=== PATIENT | female | born 1995 | race Two or more races ===

== ENCOUNTER 2020-03-01 03:55 | Inpatient (IN) | payer BC ==
[~2020-03-01] VITALS: Ht 167.6 cm; Wt 70.3 kg
[2020-03-01] MEDS ORDERED: PROZAC20 MG ORAL (04:05)
[2020-03-01 04:10] VITALS: BP 122/77
[2020-03-01] MEDS ORDERED: Activated Charcoal 50gm/240ml Btl ORAL ONE (04:15)
[2020-03-01] MEDS ORDERED: D5W IV ONE ×5 (04:15→09:45)
[2020-03-01] MEDS ORDERED: ACETADOTE IV ONE ×5 (04:15→09:45)
--- NOTE | 2020-03-01 04:17 | Emergency Room Report ---
History of Present Illness General Chief Complaint: Overdose Source: Patient (Alli Guzman MD) Present Illness HPI 25-year-old female with history of depression. She presents with chief complaint of overdose. She said she had a bad night and took a whole bottle of Tylenol from 711. She also took half a bottle of Advil. She does not know heavy tablets or in the bottles. This occurred about an hour prior to arrival. Patient also said that she was drinking heavily tonight. She says she was depressed and was suicidal but now does not want to hurt himself and is not suicidal anymore. No fever chills but no nausea no vomiting. Denies any other drug use. Family called 911. I tried calling multiple [employer] stores around this area but no one picked up. On the Internet, [employer] tylenol comes in 500 mg of 24 count tablets. 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 COVID-19 Screening: Negative COVID-19 COVID-19 Testing Source: clinic (Alli Guzman MD) Patient History Past Medical History: see triage record, old chart reviewed, depression Past Surgical History: other Family History: none Social History: ETOH Last Menstrual Period: january 2020 Now: No Immunizations: other Reviewed Nursing Documentation: PMH: Agreed; PSxH: Agreed (Alli Guzman MD) Nursing Documentation-PMH Past Medical History: No History, Except For (Alli Guzman MD) Review of Systems ENT: Denies: sore throat Cardiovascular: Denies: chest pain, palpitations Gastrointestinal/Abdominal: Denies: nausea, vomiting, diarrhea Musculoskeletal: Denies: back problems Skin: Denies: rash Neurological: Denies: [place], seizures All Other Systems: negative except mentioned in HPI (Alli Guzman MD) Physical Exam Vital Signs Date Time Temp Pulse Resp B/P (MAP) Pulse Ox O2 Delivery O2 Flow Rate FiO2 03/01/20 03:57 98.2 68 16 122/77 (92) 97 Room Air Vitals normal Sp02 EP Interpretation: reviewed, normal General Appearance: alert/responsive, no apparent distress, non-toxic Head: normocephalic, atraumatic Eyes: PERRL, EOMI ENT: oropharynx normal Neck: supple/symm/no masses Respiratory: effort normal, no rhonchi, no wheezing Cardiovascular: no murmur, gallop, rub Gastrointestinal: non-tender, no mass, non-distended, no rebound/guarding, normal bowel sounds Musculoskeletal: gait & station normal Neurologic: oriented x3, sensory intact, motor strength/tone normal Skin: no rash, normal palpation (Alli Guzman MD) Procedures Critical Care Time Critical Care Time This patient presents with Tylenol overdose. Unknown milligram but based on my best educated guess, she probably took 12 g. Is slightly above toxic dose based on her weight. Her initial Tylenol level is very high. We will repeat 1 in 4 hours. I initiated Mucomyst based on her story. Patient will need psychiatric evaluation. (Alli Guzman MD) Medical Decision Making Diagnostic Impression: Primary Impression: Tylenol overdose Qualified Codes: T39.1X2A - Poisoning by 4-aminophenol derivatives, intentional self-harm, initial encounter Additional Impressions: Alcohol intoxication Qualified Codes: F10.920 - Alcohol use, unspecified with intoxication, uncomplicated Suicidal overdose Qualified Codes: T50.902A - Poisoning by unspecified drugs, medicaments and biological substances, intentional self-harm, initial encounter ER Course This patient presents with Tylenol overdose. Initial level elevated. We will repeat 1 in 4 hours. I will sign this patient out to Dr. Coreas. (Alli Guzman MD) ER Course Please see above note. Awaiting repeat Tylenol level and also sobriety. 640 4 hour Tylenol level 130. Intermediate range. Will deliver 3rd dose of acetadote and admit to hospital with sitter. BAL also still high. Patient placed on medical hold. Discussed with patient need for continued treatment for Tylenol overdose. 1000 Patient examined by GI specialist in ED. (César Coreas MD) EKG Diagnostic Results Rate: normal, tachycardiac Rhythm: NSR ST Segments: no acute changes (Alli Guzman MD) Rhythm Strip Diag. Results EP Interpretation: yes Rate: 100 Rhythm: NSR, no PVC's, no ectopy (Alli Guzman MD) Last Vital Signs Date Time Temp Pulse Resp B/P (MAP) Pulse Ox O2 Delivery O2 Flow Rate FiO2 03/01/20 03:57 98.2 68 16 122/77 (92) 97 Room Air Status: improved (Alli Guzman MD) Last Vital Signs Date Time Temp Pulse Resp B/P (MAP) Pulse Ox O2 Delivery O2 Flow Rate FiO2 03/01/20 20:13 Room Air 03/01/20 19:55 99.0 99 20 111/74 (86) 99 Status: improved (César Coreas MD) Disposition: ADMITTED INPATIENT Condition: Serious Referrals: NOT CHOSEN IPA/,REFERRING (PCP) Alli Guzman MD Mar 01, 2020 04:17 César Coreas MD Mar 01, 2020 06:39
[2020-03-01 04:26] LABS: APPEARANCE,URINE CLEAR; BILIRUBIN, URINE NEGATIVE (NEGATIVE); COLOR,URINE PALE YELLOW; GLUCOSE, URINE (UA) NEGATIVE (NEGATIVE); KETONES,URINE NEGATIVE (NEGATIVE); LEUKOCYTE ESTERASE ,URINE NEGATIVE (NEGATIVE); NITRITE,URINE NEGATIVE (NEGATIVE); PH,URINE 5 (4.5-8.0); PROTEIN,URINE NEGATIVE (NEGATIVE); UROBILINOGEN,URINE NORMAL MG/DL (0.0-1.0)
[2020-03-01 04:28] LABS: BASOPHILS % (AUTO) 0.6 % (0.0-2.0); EOSINOPHILS % (AUTO) 0.2 % (0.0-3.0); HEMATOCRIT 40.9 % (37.0-47.0); HEMOGLOBIN 13.4 G/DL (12.0-16.0); LYMPHOCYTES % (AUTO) 36.6 % (20.0-45.0); MEAN CORPUSCULAR VOLUME 90 FL (80-99); MONOCYTES % (AUTO) 6.9 % (1.0-10.0); NEUTROPHILS % (AUTO) 55.7 % (45.0-75.0); PLATELET COUNT 343 K/UL (150-450); RED BLOOD COUNT 4.53 M/UL (4.20-5.40); RED CELL DISTRIBUTION WIDTH 14.2 % (11.6-14.8); WHITE BLOOD COUNT 12.7 K/UL (4.8-10.8)
--- NOTE | 2020-03-01 04:29 | NUR ---
ED Nurse Note: Called poison controll for recomendation for patient's injested substance. Due to the approximate time she injested acetaminophen they recomend a tylenol blood level drawn in 4 hours and if the level is above 150 then administer the acetaminophin binder. Also recomended to draw folate levels for possible additional compounds.
--- NOTE | 2020-03-01 04:34 | NUR ---
Nurse Note: Pt brought in by ambulance 68 c/o ingesting one full bottle of tylenol and half a bottle of advil with a unk amount of vodka at 0315. Pt steady gait, answers question appropriately, slurring words. Pupils fixed and dilated. Pt placed on lunchroom monitor, est IV and sent blood. Urine collected and sent to lab. Rapid covid swab collected and sent to lab. EKG given to MD Activated charcol adminstered and pt is vomiting. Pt denies SI on arrival but stated "I had a hard day so why not".
[2020-03-01 04:35] LABS: ANION GAP 12 mmol/L (5-15); BLOOD UREA NITROGEN 14 mg/dL (7-18); CALCIUM 8.6 MG/DL (8.5-10.1); CARBON DIOXIDE 22 MMOL/L (21-32); CHLORIDE 109 MMOL/L (98-107); CREATININE 0.8 MG/DL (0.55-1.30); POTASSIUM 3.7 MMOL/L (3.5-5.1); SODIUM 143 MMOL/L (136-145)
[2020-03-01 04:47] LABS: ALANINE AMINOTRANSFERASE 14 U/L (12-78); ALBUMIN 3.9 G/DL (3.4-5.0); ALBUMIN/GLOBULIN RATIO 0.9 (1.0-2.7); ALKALINE PHOSPHATASE 56 U/L (46-116); ASPARTATE AMINO TRANSFERASE 17 U/L (15-37); BILIRUBIN,TOTAL 0.2 MG/DL (0.2-1.0)
--- NOTE | 2020-03-01 05:00 | NUR ---
Nurse Note: Officer Owen #[id number] at pt side. Pt uncooperative, swearing at PD.
[2020-03-01 05:30] VITALS: BP 124/80
[2020-03-01] MEDS ORDERED: LORazepam Inj 2mg/ml 1ml IV ONE (05:30)
--- NOTE | 2020-03-01 05:56 | NUR ---
Nurse Note: Pt agitated after finishing activated charcol and vomiting. Pt pulled out IVs; 2 new IV placed - 20 gauge RT FA and 18 gauge LT AC. Pt yelling; on cardic monitor. All safety measures met.
[2020-03-01 06:55] VITALS: BP 134/87
--- NOTE | 2020-03-01 06:55 | NUR ---
Nurse Note: Endorsed care to PAM Looney for continuity of care.
--- NOTE | 2020-03-01 07:00 | NUR ---
ED Nurse Note: Received report from PAM Nixon. patient still currently yelling at staff. all safety measures in place, patient currently attached to monitor. Both IVs still intact, anecdote infusing. will continue to monitor
--- NOTE | 2020-03-01 07:57 | NUR ---
ED Nurse Note: spoke with patient's sisterkomal [phone]
--- NOTE | 2020-03-01 08:13 | NUR ---
ED Nurse Note: Collected blood alcohol level then sent.
--- NOTE | 2020-03-01 09:09 | NUR ---
ED Nurse Note: Spoke with Krissy from poison control, states that if tylenol level is greater than 126, give mucomyst.
--- NOTE | 2020-03-01 12:00 | NUR ---
ED Nurse Note: Per [facility] Control: >Repeat Acetaminophen Level with Liver Enzyme and INR - 1 hour before IV infusion(Acetadote) is completed. >If result is measurable acetaminophen level or if liver enzyme increases from baseline- then repeat 16 hour infusion. - Acetadote/Mucomyst 1000mg/kg x1L D5W x 16hours.
[2020-03-01 13:01] VITALS: BP 124/78
--- NOTE | 2020-03-01 13:01 | NUR ---
ED Nurse Note: pt. is sleeping with no s/s of acute resp distress
--- NOTE | 2020-03-01 14:30 | NUR ---
ED Nurse Note: Alexandria, water and juice provided to patient. Pt is AAO x4 at this time. Respirations are even and unlabored.
--- NOTE | 2020-03-01 15:47 | NUR ---
ED Nurse Note: Report given to NISHI OROZCO of Med Surg unit.
--- NOTE | 2020-03-01 15:47 | NUR ---
NURSE NOTES: Received report from PAM Cooper (ER)
[2020-03-01 16:00] VITALS: BP 105/76
--- NOTE | 2020-03-01 16:00 | NUR ---
NURSE NOTES: Patient arrived at unit via gurney with 2 ER nurses. Patient received awake, alert, and oriented x4. Currently on room air, no s/sx of SOB/ Distress, no c/o any pain or discomfort. IV site located on Left Hand 20, Right Hand 22 and RAC 20 all lines, inplace intact and patent. Currently running d5w with Mucomyst 7000mg protocol from [place] [facility]. Patient belongings checked and accounted for. Belonging list signed by patient. VS stable at 105/76, hr 95 02 95% temp 97.0 and RR 20. Skin assessment done none observed. Notified primary MD Young still awaiting admitting orders. Will continue to monitor patient 1:1 for any changes in patient's condition.
--- NOTE | 2020-03-01 17:02 | NUR ---
NURSE NOTES: Patient observed to be lying in bed, currently asleep. No s/sx of SOB/Distress.
[2020-03-01] MEDS ORDERED: LORazepam 1mg tab ORAL PRN (17:15)
--- NOTE | 2020-03-01 17:34 | NUR ---
NURSE NOTES: Contacted Ray Booker (father) notified of patient's admission to unit.
--- NOTE | 2020-03-01 18:02 | NUR ---
NURSE NOTES: Contacted Dr. Cage in regards to continuation of protocol from [place] [facility]. Still awaiting for any further orders.
--- NOTE | 2020-03-01 18:20 | NUR ---
NURSE NOTES: Spoke with Dr. Cage, received order to draw labs (CMP, Tylenol, and INR) AT 12:30 AM 03/02/2019. *PRIORITY* MUST BE IN BOTTLE BY 12:30 AM and brought straight to the lab. Call Dr. Cage JEFFERSON once results are available to determine continuation of current iv fluid. Orders noted and read back with confirmation from Dr. Cage. Orders carried out.
--- NOTE | 2020-03-01 19:18 | NUR ---
NURSE HAND-OFF: Important Events on Shift:ED ADMISSION, Detoxif from tylenol od Patient Status: stable Diet: npo except ice chips and meds Pending Orders: CMP, Tylenol, and INR @ 0030 Pending Results/Labs:n.a Pending MD notification:n/a Latest Vital Signs: Temperature 97.0 , Pulse 95 , B/P 105 /76 , Respiratory Rate 20 , O2 SAT 95 , Room Air, O2 Flow Rate . Vital Sign Comment: stable Latest Jessica Fall Score: 20 Fall Risk: Low Risk Safety Measures: Call light , Bed Alarm Zone 2, Side Rails Side Rails x1, Bed position Low and Locked. Fall Precautions: Yellow Socks Yellow Gown Door Sign Patient Fall Education Report given to PAM Marquez.
--- NOTE | 2020-03-01 19:28 | NUR ---
NURSE NOTES: patient alert and oriented, no distress talking on the phone with her sister.
[2020-03-01 19:55] VITALS: BP 111/74
--- NOTE | 2020-03-01 22:45 | History and Physical Report ---
DATE OF ADMISSION: 03/01/2020 HISTORY OF PRESENT ILLNESS: The patient is admitted because of Tylenol overdose. The patient came in with a chief complaint of overdose. She also took half of bottle of Advil. She does not know the exact amount. She states she was depressed and was suicidal. Family called 911. The patient might have taken 25 of Tylenol. The patient is admitted for Mucomyst administration, given the acetaminophen level being elevated. The patient denies headache. Denies shortness of breath. Denies nausea, vomiting, or diarrhea. Denies headache. PAST MEDICAL HISTORY: Depression. PAST SURGICAL HISTORY: None. FAMILY HISTORY: Noncontributory. SOCIAL HISTORY: No history of alcohol abuse. No history of drug abuse. No history of smoking. REVIEW OF SYSTEMS: HEENT: Denies headaches. RESPIRATORY: Denies shortness of breath. Denies cough. CARDIOVASCULAR: Denies chest pain. GI: Denies nausea, vomiting, or diarrhea. EXTREMITIES: Denies pain. CENTRAL NERVOUS SYSTEM: Denies change in speech pattern. ALLERGIES: No known allergies. MEDICATIONS: No medications. PHYSICAL EXAMINATION: VITAL SIGNS: Temperature 97.2, pulse 78, blood pressure 132/70. HEENT: PERRLA. NECK: Supple. No lymphadenopathy. CHEST: Clear to auscultation CARDIOVASCULAR: Regular rate and rhythm. No murmurs or extra sounds. GASTROINTESTINAL: Soft, nontender, and nondistended. No organomegaly. EXTREMITIES: No edema. Reflexes equal on both sides. Moves all four extremities. LABORATORY DATA: WBC is 12.7. Acetaminophen level is 225. Serum alcohol level is 277. ASSESSMENT AND PLAN: Tylenol overdose. I have consulted Dr. Alonzo, Dr. Velazquez, Dr. Cage for the need to examine this patient for the depression, and I have ordered and Dr. Alonzo just in case to make sure that there is no cardiac damage from the overdose. Kizzy Young M.D. DR: STARR JOB#: [id number] CC:
--- NOTE | 2020-03-01 23:26 | NUR ---
NURSE NOTES: got a phone call from marley of poison control and was told that tylenol level should be undetectable, inr<2 and cmp level within normal or trending down from previous levels in order to dc acetylcysteine iv.
[2020-03-02] VITALS: BP 106/59
[2020-03-02 00:42] LABS: ANION GAP 11 mmol/L (5-15); BLOOD UREA NITROGEN 9 mg/dL (7-18); CALCIUM 7.9 MG/DL (8.5-10.1); CARBON DIOXIDE 22 MMOL/L (21-32); CHLORIDE 104 MMOL/L (98-107); CREATININE 0.6 MG/DL (0.55-1.30); POTASSIUM 3.1 MMOL/L (3.5-5.1); SODIUM 137 MMOL/L (136-145)
[2020-03-02 00:43] LABS: INR 1.1 (0.9-1.1)
[2020-03-02 00:48] LABS: ALANINE AMINOTRANSFERASE < 6 U/L (12-78); ALBUMIN 2.9 G/DL (3.4-5.0); ALBUMIN/GLOBULIN RATIO 0.8 (1.0-2.7); ALKALINE PHOSPHATASE 38 U/L (46-116); ASPARTATE AMINO TRANSFERASE 14 U/L (15-37); BILIRUBIN,TOTAL 0.3 MG/DL (0.2-1.0)
--- NOTE | 2020-03-02 00:59 | Consultation ---
DATE OF CONSULTATION: 03/01/2020 GASTROENTEROLOGY CONSULTATION REPORT CHIEF COMPLAINT: I was asked to see this patient by Dr. Kizzy Young for evaluation of Tylenol overdose. HISTORY OF PRESENT ILLNESS: The patient is a 25-year-old woman, who came to the emergency room after taking half a bottle of Tylenol last night. At the time of my interview, the patient had just received the intravenous Ativan and was somewhat sedated and was difficult to get history from her. However, she did admit that at about 8 or 9 o'clock last night, she took half a bottle of Tylenol and attempted to commit suicide. She does have a longstanding history of depression and she is on Prozac. She came to emergency room sometime after midnight and blood level of Tylenol was drawn at 0400, which was 225 and again at 0800, which was 130. She was given activated charcoal orally and also N-acetylcysteine infusion protocol was initiated. Patient denies any abdominal pain or nausea or vomiting at this time. PAST MEDICAL HISTORY: As above history of depression. FAMILY HISTORY: Noncontributory. SOCIAL HISTORY: Patient drinks alcohol and smokes cigarettes. REVIEW OF SYSTEMS: Otherwise negative. PHYSICAL EXAMINATION: GENERAL: A well-developed woman, seen in the emergency room with the nurse present during the examination. HEENT: Normocephalic and atraumatic. NECK: Supple. CHEST: Clear to auscultation. CARDIOVASCULAR: Revealed a regular rate. ABDOMEN: Soft and nontender. EXTREMITIES: Revealed no edema. LABORATORY DATA: Reviewed. ASSESSMENT: This patient has ingested a significant amount of Tylenol last night and has been started on Mucomyst infusion therapy. This therapy will be continued for the remainder of the 16-hour infusion. At the end of the infusion, the liver tests and blood acetaminophen level will be checked and guidelines provided by Poison Control Center will be followed. If there is any detectable acetaminophen level or if there is rise in the liver tests, then a 16-hour infusion will be repeated. The patient should be seen by the Psychiatry service with respect to her attempted suicide. RECOMMENDATIONS: Per above discussion and per orders written in the chart. Thank you for asking me to participate in the care of this patient. Efrain Cage M.D. DR: MIRNA JOB#: [id number] CC:
--- NOTE | 2020-03-02 01:30 | NUR ---
left a message for dr escamilla re: lab results, awaiting call back.
--- NOTE | 2020-03-02 02:01 | NUR ---
NURSE NOTES: received orders from dr escamilla. patient started on regular diet, offered chicken sandwich, tolerating well. will give kdur after eating.
--- NOTE | 2020-03-02 02:46 | NUR ---
NURSE NOTES: received a phone call from nita of poison control and updated her with patient lab results. according to nita, poison control will close the case and if we need more guidance to call them again.
--- NOTE | 2020-03-02 06:31 | NUR ---
NURSE HAND-OFF: Important Events on Shift:[] poison control closed the case, follow as needed, started on regular diet, well tolerated no pain or discomfort Patient Status: [] stable Diet: [] regular Pending Orders: [] none Pending Results/Labs:[] cmp Pending MD notification:[] none Latest Vital Signs: Temperature 99.2 , Pulse 71 , B/P 106 /59 , Respiratory Rate 18 , O2 SAT 98 , Room Air, O2 Flow Rate . Vital Sign Comment: [] Latest Jessica Fall Score: 20 Fall Risk: Low Risk Safety Measures: Call light Within Reach, Bed Alarm Zone 2, Side Rails Side Rails x2, Bed position Low and Locked. Fall Precautions: Yellow Socks Patient Fall Education Report given to []. Addendum: 03/02/20 at 0724 by Alma Tavarez RN report given to jim louie
--- NOTE | 2020-03-02 07:30 | NUR ---
NURSE NOTES: Pt lying in bed w/bed in lowest position and call light within reach. Pt A&Ox4, VSS, and in no apparent distress. IV site intact/asymptomatic & H/L'd and skin intact. Pt alert and quiet in bed; will continue to monitor.
[2020-03-02 08:00] VITALS: BP 140/77
[2020-03-02 10:03] LABS: ALANINE AMINOTRANSFERASE 12 U/L (12-78); ALBUMIN 3.2 G/DL (3.4-5.0); ALBUMIN/GLOBULIN RATIO 0.8 (1.0-2.7); ALKALINE PHOSPHATASE 45 U/L (46-116); ANION GAP 10 mmol/L (5-15); ASPARTATE AMINO TRANSFERASE 17 U/L (15-37); BILIRUBIN,TOTAL 0.1 MG/DL (0.2-1.0); BLOOD UREA NITROGEN 10 mg/dL (7-18); CALCIUM 8.4 MG/DL (8.5-10.1); CARBON DIOXIDE 23 MMOL/L (21-32); CHLORIDE 106 MMOL/L (98-107); CREATININE 0.6 MG/DL (0.55-1.30); POTASSIUM 3.6 MMOL/L (3.5-5.1); SODIUM 139 MMOL/L (136-145)
[2020-03-02 12:00] VITALS: BP 121/74
--- NOTE | 2020-03-02 14:05 | Cardiac Electrophysiology PN ---
Subjective Subjective [id number] Objective Last 24 Hour Vital Signs Date Time Temp Pulse Resp B/P (MAP) Pulse Ox O2 Delivery O2 Flow Rate FiO2 03/02/20 12:00 98.0 85 18 121/74 (90) 96 03/02/20 09:00 Room Air 03/02/20 08:00 97.8 79 18 140/77 (98) 98 03/02/20 00:00 99.2 71 18 106/59 (75) 98 03/01/20 20:13 Room Air 03/01/20 19:55 99.0 99 20 111/74 (86) 99 03/01/20 16:37 Room Air 03/01/20 16:00 97.0 95 20 105/76 (86) 95 03/01/20 15:48 98.5 89 17 137/86 99 Room Air Intake and Output 03/01/20 03/02/20 19:00 07:00 Intake Total 1200 ml Balance 1200 ml Intake Oral 1200 ml # Voids 1 2 Laboratory Tests Test 03/02/20 00:26 03/02/20 09:00 Prothrombin Time 12.1 SEC (9.30-11.50) H Prothromb Time International Ratio 1.1 (0.9-1.1) Sodium Level 137 MMOL/L (136-145) 139 MMOL/L (136-145) Potassium Level 3.1 MMOL/L (3.5-5.1) L 3.6 MMOL/L (3.5-5.1) Chloride Level 104 MMOL/L (98-107) 106 MMOL/L (98-107) Carbon Dioxide Level 22 MMOL/L (21-32) 23 MMOL/L (21-32) Anion Gap 11 mmol/L (5-15) 10 mmol/L (5-15) Blood Urea Nitrogen 9 mg/dL (7-18) 10 mg/dL (7-18) Creatinine 0.6 MG/DL (0.55-1.30) 0.6 MG/DL (0.55-1.30) Estimat Glomerular Filtration Rate > 60 mL/min (>60) > 60 mL/min (>60) Glucose Level 89 MG/DL (74-106) 97 MG/DL (74-106) Calcium Level 7.9 MG/DL (8.5-10.1) L 8.4 MG/DL (8.5-10.1) L Total Bilirubin 0.3 MG/DL (0.2-1.0) 0.1 MG/DL (0.2-1.0) L Aspartate Amino Transf (AST/SGOT) 14 U/L (15-37) L 17 U/L (15-37) Alanine Aminotransferase (ALT/SGPT) < 6 U/L (12-78) L 12 U/L (12-78) Alkaline Phosphatase 38 U/L (46-116) L 45 U/L (46-116) L Total Protein 6.5 G/DL (6.4-8.2) 7.1 G/DL (6.4-8.2) Albumin 2.9 G/DL (3.4-5.0) L 3.2 G/DL (3.4-5.0) L Globulin 3.6 g/dL 3.9 g/dL Albumin/Globulin Ratio 0.8 (1.0-2.7) L 0.8 (1.0-2.7) L Acetaminophen Level < 2 MCG/ML (10-30) L Microbiology Date/Time Source Procedure Growth Status 03/01/20 04:15 Nasopharynx SARS-CoV-2 RdRp Gene Assay - Final Complete Albert Alonzo MD Mar 02, 2020 14:05
--- NOTE | 2020-03-02 14:44 | Consultation ---
DATE OF CONSULTATION: 03/02/2020 CARDIOLOGY CONSULTATION CONSULTING PHYSICIAN: Albert Alonzo MD. REFERRING PHYSICIAN: Kizzy Young MD. REASON FOR CONSULTATION: Abnormal electrocardiogram in a patient with Tylenol overdose. HISTORY OF PRESENT ILLNESS: The patient is a 25-year-old lady with history of depression, came to the emergency room after taking half a bottle of Tylenol. The patient was attempting to commit suicide. The patient is on Prozac. In the emergency room, Tylenol level was 225 and again it was 130. She received activated charcoal orally as well as n-acetylcysteine infusion protocol was initiated. Her EKG showed sinus rhythm with left atrial enlargement, and Cardiology consultation was obtained for further evaluation. The patient denies any syncope or presyncope or prior cardiac history. REVIEW OF SYSTEMS: Negative other than what was mentioned in the history of present illness. PAST MEDICAL HISTORY: Includes anxiety and depression. MEDICATIONS: At home include Prozac and currently on Ativan p.r.n. PHYSICAL EXAMINATION: VITAL SIGNS: Show blood pressure of 121/74, pulse is 85, respirations 18, temperature 98. HEAD AND NECK: Showed no JVD. LUNGS: Clear. CARDIOVASCULAR: Shows regular S1 and S2 with no gallop or murmur. ABDOMEN: Soft. EXTREMITIES: No pitting edema. LABORATORY DATA: Labs show white count 12.7, hemoglobin 13.4, hematocrit of 41, and platelet count 343,000. Sodium 139, potassium 3.6, BUN of 10, creatinine 0.6, and glucose of 97. Toxicology showed acetaminophen level was 225, then 130, and today is less than 2. ASSESSMENT AND PLAN: 1. Status post Tylenol overdose. Fortunately, the patient has not developed any arrhythmias. Her liver function test currently is within normal range as well as her renal function. I will get an echocardiogram and repeat EKG for further evaluation. 2. Depression, on Prozac. 3. Hypokalemia. Potassium was replaced. Thank you much for allowing me to participate in the care of this patient. Please do not hesitate to contact me for any questions regarding my evaluation. Albert Alonzo M.D. : NORBERT JOB#: [id number] CC:
--- NOTE | 2020-03-02 15:05 | NUR ---
CASE MANAGEMENT:INITIAL REVIEW 25 YR OLD FEMALE BIBJonas FROM HOME CC;OVERDOSE SI;TYLENOL OVERDOSE. ETOH INTOXICATION. SUICIDAL OD. 98.2 124 26 134/87 97% ON RA WBC+ 12.7 CL+ 109 GLU+ 114 PT+ 12.1 UA+ BLOOD URINE TOX (+) ACETAMINOPHEN+ 225 COVID RAPID ~ NEGATIVE IS;ZOFRAN IV ACETYLCYSTEINE IV X3 CHARCOAL PO IVF NS BOLUS ATIVAN IV ADMITTED TO MED SURG MED SURG STATUS DCP;PENDING HOSPITAL STAY
[2020-03-02 16:00] VITALS: BP 138/89
--- NOTE | 2020-03-02 19:31 | NUR ---
NURSE HAND-OFF: Important Events on Shift: Pt seen by Dr. Velazquez and Dr. Alonzo; EKG & 2D echo done. Patient Status: Stable Diet: Regular Pending Orders: PET eval once medically cleared Pending Results/Labs: None Pending MD notification: None Latest Vital Signs: Temperature 98.5 , Pulse 88 , B/P 138 /89 , Respiratory Rate 18 , O2 SAT 99 , Room Air, O2 Flow Rate . Vital Sign Comment: Stable Latest Jessica Fall Score: 20 Fall Risk: Low Risk Safety Measures: Call light Within Reach, Bed Alarm Zone 2, Side Rails Side Rails x2, Bed position Low and Locked. Fall Precautions: Yellow Socks Patient Fall Education Report given to PAM Hanna.
--- NOTE | 2020-03-02 19:32 | NUR ---
NURSE NOTES: Received report & pt from PAM De La O. Pt in bed, a&ox4, in room air. No s/s of acute distress & no /co pain at this time. Calm in bed, watching show via cellphone. IV site intact & S/L'd. Yvrose Espinoza CNA at bedside. Plan of care discussed.
--- NOTE | 2020-03-02 20:08 | General Progress Note ---
Subjective Allergies: Coded Allergies: No Known Allergies (Unverified , 03/01/20) Subjective feels well no abd pain tolerating PO d/w patient re labs Objective Last 24 Hour Vital Signs Date Time Temp Pulse Resp B/P (MAP) Pulse Ox O2 Delivery O2 Flow Rate FiO2 03/02/20 16:00 98.5 88 18 138/89 (105) 99 03/02/20 12:00 98.0 85 18 121/74 (90) 96 03/02/20 09:00 Room Air 03/02/20 08:00 97.8 79 18 140/77 (98) 98 03/02/20 00:00 99.2 71 18 106/59 (75) 98 03/01/20 20:13 Room Air Intake and Output 03/01/20 03/02/20 19:00 07:00 Intake Total 1200 ml Balance 1200 ml Intake Oral 1200 ml # Voids 1 2 Laboratory Tests 03/02/20 00:26: Prothrombin Time 12.1H, Prothromb Time International Ratio 1.1, Sodium Level 137, Potassium Level 3.1L, Chloride Level 104, Carbon Dioxide Level 22, Anion Gap 11, Blood Urea Nitrogen 9, Creatinine 0.6, Estimat Glomerular Filtration Rate > 60, Glucose Level 89, Calcium Level 7.9L, Total Bilirubin 0.3, Aspartate Amino Transf (AST/SGOT) 14L, Alanine Aminotransferase (ALT/SGPT) < 6L, Alkaline Phosphatase 38L, Total Protein 6.5, Albumin 2.9L, Globulin 3.6, Albumin/Globulin Ratio 0.8L, Acetaminophen Level < 2L 03/02/20 09:00: Sodium Level 139, Potassium Level 3.6, Chloride Level 106, Carbon Dioxide Level 23, Anion Gap 10, Blood Urea Nitrogen 10, Creatinine 0.6, Estimat Glomerular Filtration Rate > 60, Glucose Level 97, Calcium Level 8.4L, Total Bilirubin 0.1L , Aspartate Amino Transf (AST/SGOT) 17, Alanine Aminotransferase (ALT/SGPT) 12, Alkaline Phosphatase 45L, Total Protein 7.1, Albumin 3.2L, Globulin 3.9, Albumin/Globulin Ratio 0.8L Height (Feet): 5 Height (Inches): 6.00 Weight (Pounds): 155 Objective WDWN NCAT supple CTA RR abd soft ND no edema Assessment/Plan Assessment/Plan: Assessment - Tyleno OD Recommendations - psychiatry eval and f/u Efrain Cage MD Mar 02, 2020 20:08
[2020-03-02 20:30] VITALS: BP 123/74
--- NOTE | 2020-03-02 21:54 | General Progress Note ---
Subjective ROS Limited/Unobtainable: Yes Allergies: Coded Allergies: No Known Allergies (Unverified , 03/01/20) Objective Last 24 Hour Vital Signs Date Time Temp Pulse Resp B/P (MAP) Pulse Ox O2 Delivery O2 Flow Rate FiO2 03/02/20 21:00 Room Air 03/02/20 20:30 98.2 77 16 123/74 (90) 98 03/02/20 16:00 98.5 88 18 138/89 (105) 99 03/02/20 12:00 98.0 85 18 121/74 (90) 96 03/02/20 09:00 Room Air 03/02/20 08:00 97.8 79 18 140/77 (98) 98 03/02/20 00:00 99.2 71 18 106/59 (75) 98 Intake and Output 03/01/20 03/02/20 19:00 07:00 Intake Total 1200 ml Balance 1200 ml Intake Oral 1200 ml # Voids 1 2 Laboratory Tests 03/02/20 00:26: Prothrombin Time 12.1H, Prothromb Time International Ratio 1.1, Sodium Level 137, Potassium Level 3.1L, Chloride Level 104, Carbon Dioxide Level 22, Anion Gap 11, Blood Urea Nitrogen 9, Creatinine 0.6, Estimat Glomerular Filtration Rate > 60, Glucose Level 89, Calcium Level 7.9L, Total Bilirubin 0.3, Aspartate Amino Transf (AST/SGOT) 14L, Alanine Aminotransferase (ALT/SGPT) < 6L, Alkaline Phosphatase 38L, Total Protein 6.5, Albumin 2.9L, Globulin 3.6, Albumin/Globulin Ratio 0.8L, Acetaminophen Level < 2L 03/02/20 09:00: Sodium Level 139, Potassium Level 3.6, Chloride Level 106, Carbon Dioxide Level 23, Anion Gap 10, Blood Urea Nitrogen 10, Creatinine 0.6, Estimat Glomerular Filtration Rate > 60, Glucose Level 97, Calcium Level 8.4L, Total Bilirubin 0.1L , Aspartate Amino Transf (AST/SGOT) 17, Alanine Aminotransferase (ALT/SGPT) 12, Alkaline Phosphatase 45L, Total Protein 7.1, Albumin 3.2L, Globulin 3.9, Albumin/Globulin Ratio 0.8L Height (Feet): 5 Height (Inches): 6.00 Weight (Pounds): 155 Assessment/Plan Problem List: (1) Suicidal overdose ICD Codes: T50.902A - Poisoning by unspecified drugs, medicaments and biological substances, intentional self-harm, initialencounter SNOMED: 07699604, [id number] Qualifiers: Qualified Codes: T50.902A - Poisoning by unspecified drugs, medicaments and biological substances, intentional self-harm, initial encounter (2) Tylenol overdose ICD Codes: T39.1X1A - Poisoning by 4-Aminophenol derivatives, accidental (unintentional), initial encounter SNOMED: 888789930, [id number] Qualifiers: Qualified Codes: T39.1X2A - Poisoning by 4-aminophenol derivatives, intentional self-harm, initial encounter Status: progressing Assessment/Plan: afebrile weak s/p tyelenol od no tachycardia Kizzy Young MD Mar 02, 2020 21:54
--- NOTE | 2020-03-02 23:55 | Psychiatry Consultation ---
Psychiatry Consultation Psychiatry Consultation Chief Complaint: Overdose Allergies: Coded Allergies: No Known Allergies (Unverified , 03/01/20) Medication History Scheduled Fluoxetine Hcl* (Prozac*), 20 MG ORAL DAILY, (Reported) Objective Data Height (Feet): 5 Height (Inches): 6.00 Weight (Pounds): 155 Shakeel Velazquez MD Mar 02, 2020 23:55
[2020-03-03 04:00] VITALS: BP 115/67
[2020-03-03 06:19] LABS: ALANINE AMINOTRANSFERASE 12 U/L (12-78); ALBUMIN 3.1 G/DL (3.4-5.0); ALBUMIN/GLOBULIN RATIO 0.8 (1.0-2.7); ALKALINE PHOSPHATASE 43 U/L (46-116); ANION GAP 8 mmol/L (5-15); ASPARTATE AMINO TRANSFERASE 16 U/L (15-37); BILIRUBIN,TOTAL 0.4 MG/DL (0.2-1.0); BLOOD UREA NITROGEN 7 mg/dL (7-18); CALCIUM 8.6 MG/DL (8.5-10.1); CARBON DIOXIDE 24 MMOL/L (21-32); CHLORIDE 106 MMOL/L (98-107); CREATININE 0.7 MG/DL (0.55-1.30); POTASSIUM 3.9 MMOL/L (3.5-5.1); SODIUM 138 MMOL/L (136-145)
--- NOTE | 2020-03-03 06:40 | NUR ---
NURSE HAND-OFF: Important Events on Shift:no suicidal attempts, calm & quiet the entire night, requested to have IV s/l removed d/t bruising & site pain--informed Dr agee if ok without iv access since pt tolerating PO very well & no iv meds Patient Status: stable Diet: Regular Pending Orders: PET Team eval once medically cleared Pending Results/Labs: Pending MD notification: Latest Vital Signs: Temperature 98.4 , Pulse 54 , B/P 115 /67 , Respiratory Rate 16 , O2 SAT 100 , Room Air, O2 Flow Rate . Vital Sign Comment: Latest Jessica Fall Score: 20 Fall Risk: Low Risk Safety Measures: Call light Within Reach, Bed Alarm Zone 2, Side Rails Side Rails x2, Bed position Low and Locked. Fall Precautions: Yellow Socks Patient Fall Education Report given to PAM Sherman.
--- NOTE | 2020-03-03 07:30 | NUR ---
NURSE NOTES: Received report from Cyndi OROZCO, patient a/a/o x4 laying in bed with no signs of distress or other issues at this time. seater at bed side. patient verbalized no thought of suicidal ideation nor plans to pursue that. per Dr. Cage GI specialist patient is cleared to go home today. call light within reach, bed in lowest position. side rales up x2. I will f/u as needed. Plan: - pending PET team to evaluate for d/c clearance.
--- NOTE | 2020-03-03 07:45 | Consultation ---
DATE OF CONSULTATION: 03/01/2020 CONSULTING PHYSICIAN: Shakeel Velazquez M.D. HISTORY OF PRESENT ILLNESS: The patient is a 25-year-old female with a history of depression, anxiety, who has been admitted to the hospital. She states that she "heavily." The patient drinks on a daily basis. The patient has poor insight into her mental condition. The patient has taken a whole bottle of Tylenol in an attempt to kill herself. The patient denies any suicidal ideation. However, she is very with depressive anxiety. A friend called 911 when she started saying good bye via text message. PAST PSYCHIATRIC HISTORY: Depression, anxiety on Prozac. Denies any suicide attempt. Denies any psychiatric hospitalization. PAST MEDICAL HISTORY: Not significant. The patient has no history of medical issues. ALLERGIES: No known drug allergies. SUBSTANCE ABUSE: The patient states she drinks on a daily basis. SOCIAL HISTORY: The patient works as a , does not have any children, lives alone at home. MENTAL STATUS EXAMINATION: The patient is alert, oriented times self, place, situation, and date. Mood is anxious. Affect is blunted. Thought process is concrete. Thought content, no delusional thoughts. Cognition is intact. Insight and judgment fair. ASSESSMENT: [place] I Major depressive disorder. Alcohol dependence [place] II Deferred. [place] III As above. [place] IV Low to moderate. [place] V 25. PLAN: 1. The patient is still an imminent danger to self 2. The patient will be transferred to psychiatric unit . Shakeel Velazquez M.D. DR: DEIDRE JOB#: [id number] CC:
[2020-03-03 08:00] VITALS: BP 109/66
--- NOTE | 2020-03-03 10:30 | NUR ---
NURSE NOTES: Patient state wanted to leave home with her family. RN called patients sister at [phone] Maribell, she stated that her plan is to pick patient up and they take her home with her father for a few days or patient will go to her mother's home so patient is not been left alone. Maribell also stated that she will make sure patient fallow up with her psych doctor and fallow their recommendations. RN called Dr. Velazquez to inform of the above, and stated that patient needs to being seeing by the PET team, RN stated that is no social research assistant in house today nor PET team will eval patient since patient is admitting as inpatient. per Dr. Velazquez stated " I am very busy to talk to you right now, I will call you later". RN informed Nida MARTINEZ, Reina CASTLE, Maria Elena grijalva and Jess director of this issue. I will f/u as needed.
--- NOTE | 2020-03-03 10:49 | Cardiac Electrophysiology PN ---
Assessment/Plan Assessment/Plan 1. Status post Tylenol overdose. Fortunately, the patient has not developed any arrhythmias. Her liver function test currently is within normal range as well as her renal function. ECho Nl EF 60% 2. Depression, on Prozac. 3. Hypokalemia. Potassium was replaced. Subjective Subjective Comfortable in NAD. No CP or SOB Objective Last 24 Hour Vital Signs Date Time Temp Pulse Resp B/P (MAP) Pulse Ox O2 Delivery O2 Flow Rate FiO2 03/03/20 08:43 Room Air 03/03/20 08:00 98.5 67 20 109/66 (80) 98 03/03/20 04:00 98.4 54 16 115/67 (83) 100 03/02/20 21:00 Room Air 03/02/20 20:30 98.2 77 16 123/74 (90) 98 03/02/20 16:00 98.5 88 18 138/89 (105) 99 03/02/20 12:00 98.0 85 18 121/74 (90) 96 Intake and Output 03/02/20 03/03/20 19:00 07:00 Intake Total 600 ml 240 ml Balance 600 ml 240 ml Intake Oral 600 ml 240 ml # Voids 4 2 # Bowel Movements 4 Laboratory Tests Test 03/03/20 05:38 Sodium Level 138 MMOL/L (136-145) Potassium Level 3.9 MMOL/L (3.5-5.1) Chloride Level 106 MMOL/L (98-107) Carbon Dioxide Level 24 MMOL/L (21-32) Anion Gap 8 mmol/L (5-15) Blood Urea Nitrogen 7 mg/dL (7-18) Creatinine 0.7 MG/DL (0.55-1.30) Estimat Glomerular Filtration Rate > 60 mL/min (>60) Glucose Level 95 MG/DL (74-106) Calcium Level 8.6 MG/DL (8.5-10.1) Total Bilirubin 0.4 MG/DL (0.2-1.0) Aspartate Amino Transf (AST/SGOT) 16 U/L (15-37) Alanine Aminotransferase (ALT/SGPT) 12 U/L (12-78) Alkaline Phosphatase 43 U/L (46-116) L Total Protein 6.9 G/DL (6.4-8.2) Albumin 3.1 G/DL (3.4-5.0) L Globulin 3.8 g/dL Albumin/Globulin Ratio 0.8 (1.0-2.7) L Microbiology Date/Time Source Procedure Growth Status 03/01/20 04:15 Nasopharynx SARS-CoV-2 RdRp Gene Assay - Final Complete Objective HEAD AND NECK: No JVD. LUNGS: Clear. CARDIOVASCULAR: Regular S1 and S2 with no gallop or murmur. ABDOMEN: Soft. EXTREMITIES: No pitting edema. Albert Alonzo MD Mar 03, 2020 10:49
[2020-03-03 12:00] VITALS: BP 111/75
--- NOTE | 2020-03-03 12:15 | NUR ---
CASE MANAGEMENT:REVIEW SI;TYLENOL OVERDOSE 98.5 54 20 123/74 98% ON RA ALB- 3.1 IS;PROZAC PO QD K-DUR PO ONCE MED SURG STATUS DCP;FROM HOME PLAN; PET EVAL DC PENDING MEDICAL CLEARANCE
--- NOTE | 2020-03-03 14:30 | NUR ---
NURSE NOTES: patient continues to go home with family. pt sister will provide transportation. patient left AMA since patient was not cleared from Psych stand point. - patient left the floor with no signs of distress or other issues at this time. patient was able to verbalized and stated that she will fallow up with her psych doctor. patient also stated that she doesn't have any thoughts of hurting her self or hurting others. - Dr. Young, and Dr. Velazquez are aware patient left AMA. - Nida MARTINEZ as well as [facility] director are aware of the AMA.
--- NOTE | 2020-03-03 16:13 | NUR ---
Patient verbalized discontent with the service she received from the doctors. "They [the physicians] do not provide me with the attention that I need. I believe I can receive better care somewhere else." Patient denied suicidal ideations or intent to harm self. Explained risks and benefits of leaving against medical advice. Patient verbalized that she has all her belongings with her. MEDICINE WORKER escorted her outside of facility and was greeted by her sister outside of the building per NOREEN Marquez.
--- NOTE | 2020-03-03 19:51 | Psychiatric Progress Note ---
Psychiatry Progress Note Psychiatry Progress Note Subjective spoke to pt who denied si however she still has multiple risk factors. poor coping skill. lack of support alcohol dependence. and recent serious suicide attempt. I spoke to bottle house quality control technician and other administration members. explained to nurse that pet team should be called. however the staff involved the director o the unit who decided to let the pt go ama. I was contacted via text messege the pt was left AMA and Pet team was not needed. The director of unit documented herself as well. the pt was still vert depressed and anxious. she didn't give me her psychiatrist phone number ot name. "I cannot remember the name" Medications Current Medications Medications (Trade) Dose Ordered Sig/Dyan Route PRN Reason Start Time Stop Time Status Last Admin Dose Admin Fluoxetine HCl (PROzac) 40 mg DAILY ORAL 03/02/20 09:00 04/01/20 08:59 03/03/20 08:20 Lorazepam (Ativan) 1 mg Q6H PRN ORAL For Anxiety 03/01/20 17:15 03/08/20 17:14 Allergies: Coded Allergies: No Known Allergies (Unverified , 03/01/20) Objective Data Height (Feet): 5 Height (Inches): 6.00 Weight (Pounds): 155 Assessment/Plan Status: progressing Shakeel Velazquez MD Mar 03, 2020 19:51
--- NOTE | 2020-03-03 20:56 | General Progress Note ---
Subjective ROS Limited/Unobtainable: Yes Allergies: Coded Allergies: No Known Allergies (Unverified , 03/01/20) Objective Last 24 Hour Vital Signs Date Time Temp Pulse Resp B/P (MAP) Pulse Ox O2 Delivery O2 Flow Rate FiO2 03/03/20 12:00 98.6 97 18 111/75 (87) 97 03/03/20 08:43 Room Air 03/03/20 08:00 98.5 67 20 109/66 (80) 98 03/03/20 04:00 98.4 54 16 115/67 (83) 100 03/02/20 21:00 Room Air Intake and Output 03/02/20 03/03/20 19:00 07:00 Intake Total 600 ml 240 ml Balance 600 ml 240 ml Intake Oral 600 ml 240 ml # Voids 4 2 # Bowel Movements 4 Laboratory Tests 03/03/20 05:38: Sodium Level 138, Potassium Level 3.9, Chloride Level 106, Carbon Dioxide Level 24, Anion Gap 8, Blood Urea Nitrogen 7, Creatinine 0.7, Estimat Glomerular Filtration Rate > 60, Glucose Level 95, Calcium Level 8.6, Total Bilirubin 0.4, Aspartate Amino Transf (AST/SGOT) 16, Alanine Aminotransferase (ALT/SGPT) 12, Alkaline Phosphatase 43L, Total Protein 6.9, Albumin 3.1L, Globulin 3.8, Albumin/Globulin Ratio 0.8L Height (Feet): 5 Height (Inches): 6.00 Weight (Pounds): 155 Assessment/Plan Problem List: (1) Suicidal overdose ICD Codes: T50.902A - Poisoning by unspecified drugs, medicaments and biological substances, intentional self-harm, initialencounter SNOMED: [id number], [id number] Qualifiers: Qualified Codes: T50.902A - Poisoning by unspecified drugs, medicaments and biological substances, intentional self-harm, initial encounter (2) Tylenol overdose ICD Codes: T39.1X1A - Poisoning by 4-Aminophenol derivatives, accidental (unintentional), initial encounter SNOMED: [id number], [id number] Qualifiers: Qualified Codes: T39.1X2A - Poisoning by 4-aminophenol derivatives, intentio nal self-harm, initial encounter Status: progressing Assessment/Plan: afebrile weak s/p tyelenol od needs clearance from dr farhadi before being dc Kizzy Young MD Mar 03, 2020 20:56
--- NOTE | 2020-03-03 23:04 | General Progress Note ---
Subjective Allergies: Coded Allergies: No Known Allergies (Unverified , 03/01/20) Subjective feels well no abd pain tolerating PO d/w patient re labs Objective Last 24 Hour Vital Signs Date Time Temp Pulse Resp B/P (MAP) Pulse Ox O2 Delivery O2 Flow Rate FiO2 03/03/20 12:00 98.6 97 18 111/75 (87) 97 03/03/20 08:43 Room Air 03/03/20 08:00 98.5 67 20 109/66 (80) 98 03/03/20 04:00 98.4 54 16 115/67 (83) 100 Intake and Output 03/02/20 03/03/20 19:00 07:00 Intake Total 600 ml 240 ml Balance 600 ml 240 ml Intake Oral 600 ml 240 ml # Voids 4 2 # Bowel Movements 4 Laboratory Tests 03/03/20 05:38: Sodium Level 138, Potassium Level 3.9, Chloride Level 106, Carbon Dioxide Level 24, Anion Gap 8, Blood Urea Nitrogen 7, Creatinine 0.7, Estimat Glomerular Filtration Rate > 60, Glucose Level 95, Calcium Level 8.6, Total Bilirubin 0.4, Aspartate Amino Transf (AST/SGOT) 16, Alanine Aminotransferase (ALT/SGPT) 12, Alkaline Phosphatase 43L, Total Protein 6.9, Albumin 3.1L, Globulin 3.8, Albumin/Globulin Ratio 0.8L Height (Feet): 5 Height (Inches): 6.00 Weight (Pounds): 155 Objective WDWN NCAT supple CTA RR abd soft ND no edema Assessment/Plan Status: progressing Assessment/Plan: Assessment - Ana Maria ALZCANO Recommendations - psychiatry eval and f/u Efrain Cage MD Mar 03, 2020 23:04
--- NOTE | 2020-03-05 14:38 | Discharge Summary ---
Discharge Summary Discharge Summary _ Date of admission: 03/01/2020 Patient left AGAINST MEDICAL ADVICE on 03/03/2020 History of Present Illness and Brief Hospital Course Ms. Booker is a 25-year-old female with history of depression, who presented to the ED for evaluation of Tylenol overdose. She reported that she took a whole bottle of Tylenol and a half bottle of Advil. She did not recall how many pills she took. This occurred about an hour prior to arrival. She reported that she felt depressed and was suicidal but did not want to hurt herself and was not suicidal at the ED. She also reported drinking daily. Her initial Tylenol level was critically high. Mucomyst was initiated based on her story. She reported that she is on Prozac for her depression. Given high Tylenol level in her system, she was evaluated by a malt house operator for possible cardiac damage. Patient did not develop any arrhythmias. Her liver function test was within normal range as well as her renal function. Her echocardiogram showed ejection fraction of 60%. Given her hypokalemia, potassium was replaced. She was also seen by a psychiatrist who recommended psychiatric emergency team to be called. However patient decided to leave the hospital AGAINST MEDICAL ADVICE. Consultants: Psychiatry Dr. Velazquez Cardiology Dr. Alonzo Gastroenterology Dr. Cage Final diagnoses Depressive disorder Status post Tylenol overdose Hypokalemia Alcohol dependence I have been assigned to dictate discharge summary for this account. I was not involved in the patient's management Arsh Quarles Mar 05, 2020 14:38
--- NOTE | 2020-03-06 13:06 | NUR ---
INSURANCE DC SUMMARY FAXED TO [employer]PO P [phone]
== END 2020-03-03 16:15 | disposition left against medical advice (07) | DRG 918 ==
LOC: EDBD 03:55 → EMR 04:07 → EDBEDREQ 14:40 → 3E 14:48
DX: T39.1X2A Poisoning by 4-Aminophenol derivatives, intentional self-harm, initial encounter (principal); E87.1 Hypo-osmolality and hyponatremia; Y92.009 Unspecified place in unspecified non-institutional (private) residence as the place of occurrence of the external cause; F32.9 Major depressive disorder, single episode, unspecified; E87.6 Hypokalemia; F41.9 Anxiety disorder, unspecified; F10.229 Alcohol dependence with intoxication, unspecified
CPT/HCPCS: 36415; 80053; 80307; 81003; 81025; 85025; 85610; 93005; 93306; 96365; 96375; 99291; G0480; J2405; J7030; J8499; U0002